=== PATIENT | male | born 1990 | race African-American/Black ===

== ENCOUNTER 2018-08-28 14:29 | Emergency (ER) | payer SELFPAY ==
[2018-08-28] MEDS ORDERED: predniSONE 20 MG TAB ONE (14:55)
[2018-08-28] MEDS ORDERED: Famotidine 20 MG TAB ONE (14:55)
[2018-08-28] MEDS ORDERED: diphenhydrAMINE 50 MG CAP ONE (14:55)
== END 2018-08-28 16:10 | disposition home or self-care (01) ==
LOC: ERS 14:29
DX: L50.9 Urticaria, unspecified (principal); L30.9 Dermatitis, unspecified; F32.9 Major depressive disorder, single episode, unspecified
CPT/HCPCS: 99283; J7506

== ENCOUNTER 2022-05-11 14:00 | Emergency (ER) | payer SELFPAY ==
[2022-05-11 14:34] LABS: #Lymphocytes 0.9 thou/uL (1.20-3.40); #Monocytes 1.5 thou/uL (0.11-0.59); #Neutrophils 8.2 thou/uL (1.40-6.50); %Basophils 0.1 % (0.0-1.0); %Lymphocytes 8.7 % (21.0-51.0); %Monocytes 13.8 % (0.0-10.0); %Neutrophils 77.4 % (42.0-75.0); Hemoglobin 13.5 g/dL (14.0-18.0); Mean Corpuscular HGB CONC 33.1 g/dL (32.0-36.0); Mean Corpuscular Hemoglobin 32.5 pg (27.0-31.0); Mean Platelet Volume 6.1 fL (7.4-10.4); Platelet Count 214 thou/uL (130-400); RBC Distribution Width 11.2 % (11.5-14.5); Red Blood Cell (RBC) Count 4.16 mill/uL (4.70-6.10); White Blood Cell (WBC) Count 10.6 thou/uL (4.8-10.8)
[2022-05-11 14:55] LABS: Anion Gap 13 mmol/L (10-20); BUN (Urea Nitrogen) 15 mg/dL (8.9-20.6); Calc. Creatinine Clearance 0 mL/min (70-130); Calcium 9.1 mg/dL (7.8-10.44); Carbon Dioxide 24 mmol/L (22-29); Chloride 103 mmol/L (98-107); Glucose 108 mg/dL (70-105); Potassium 3.5 mmol/L (3.5-5.1); Sodium 136 mmol/L (136-145)
[2022-05-11 15:49] LABS: ALT (SGPT) 12 U/L (8-55); AST (SGOT) 18 U/L (5-34); Albumin 4.6 g/dL (3.5-5.0); Alkaline Phosphatase 53 U/L (40-110); Anion Gap 14 mmol/L (10-20); BUN (Urea Nitrogen) 14 mg/dL (8.9-20.6); Bilirubin, Total 1.4 mg/dL (0.2-1.2); CK (CPK) 512 U/L (30-200); Calc. Creatinine Clearance 0 mL/min (70-130); Calcium 9.2 mg/dL (7.8-10.44); Carbon Dioxide 25 mmol/L (22-29); Chloride 103 mmol/L (98-107); Globulin 2.6 g/dL (2.4-3.5); Glucose 108 mg/dL (70-105); Potassium 3.5 mmol/L (3.5-5.1); Protein, Total 7.2 g/dL (6.0-8.3); Sodium 138 mmol/L (136-145)
[2022-05-11] MEDS ORDERED: Acetaminophen 500 MG TAB ONE (15:58)
[2022-05-11 18:25] LABS: Bacteria/HPF None Seen HPF (None Seen); Bilirubin Negative (Negative); Blood, Urine Negative (Negative); Clarity Clear (Clear); Glucose, Urine (Dipstick) Normal (Negative); Ketone, Urine 100 mg/dL (Negative); Leukocyte Negative Leu/uL (Negative); Nitrite Negative (Negative); Protein, Urine (Dipstick) 30 mg/dL (Neg-Trace); RBC/HPF 0-3 HPF (0-3); Specific Gravity, Urine 1.035 (1.002-1.036); Squamous Epithelial None Seen HPF (0-3); Urobilinogen Normal mg/dL (Less than 2); WBC/HPF 0-3 HPF (0-3)
== END 2022-05-11 18:08 | disposition home or self-care (01) ==
LOC: ERS 14:00
DX: E86.0 Dehydration (principal); R55 Syncope and collapse; Z20.822 Contact with and (suspected) exposure to COVID-19
CPT/HCPCS: 36415; 70450; 70486; 71045; 72125; 80048; 81003; 81015; 82550; 84484; 85025; 93005